=== PATIENT | female | born 1970 | race Caucasian/White ===

== ENCOUNTER 2016-07-13 21:13 | Emergency (ER) | payer OTHER ==
[~2016-07-13] VITALS: Ht 154.9 cm; Wt 72.0 kg
[~2016-07-13 21:13] MED LIST: AMANTADINE; AMANTADINE100 M1 PO; BACLOFEN10 MG PO; BACLOFEN20 MG PO; CLARITIN-D 21 TABLET PO; CLARITIN10 M1 PO; CLARITIN10 M3 PO; CLARITIN5 MG/5 ML PO; COMBIVENT RESPIM4 GM IH; CYMBALTA20 MG PO; CYMBALTA60 MG PO; DILAUDID2 MG PO; DILAUDID4 MG PO; FENTANYL1 EAC5 TD; HYDROMORPHONE HC8 MG PO; KLONOPIN0.5 M1 PO; LEVO-T88 MCG PO; LEVOTHROID,S0.088 MG PO; MARTINIC1 EACH SC; MS CONTIN,ORAMO30 MG PO; MS CONTIN30 MG PO; Martinic SC; ONDANSETRON HCL4 MG PO; PRAVACHOL20 MG PO; PREVACID15 MG PO; PRILOSEC2.5 MG PO; PRILOSEC40 MG PO; PROMETHAZI25 MG/1 M2 SC; PROMETHAZINE HCL SC; PROVENTIL,200 INHALA IH; SEROQUEL300 MG PO; STOOL SOFTENER1 EAC2 PO; THERAGRAN1 TABLET PO; VALACYCLOVIR500 MG PO; VITAMIN B-1250 MC3 PO; VITAMIN D400 INTUNI PO; VITAMIN D50000 UNI1 PO; ZOFRAN ODT4 MG PO; ZOFRAN4 MG PO; Zofran PO
[2016-07-14 03:21] VITALS: BP 128/71
== END 2016-07-14 05:13 | disposition home or self-care (01) ==
LOC: EME 21:13
DX: G89.29 Other chronic pain (principal); G12.21 Amyotrophic lateral sclerosis
CPT/HCPCS: 99281; 99284; J1170; J2405

== ENCOUNTER 2016-10-02 02:44 | Inpatient (IN) | payer OTHER ==
[~2016-10-02] VITALS: Ht 154.9 cm; Wt 78.9 kg
[2016-10-02 03:10] LABS: HEMATOCRIT 34.8 % (36.0-46.0); MCH 29.8 PG (29.0-34.0); MCHC 32.2 G/DL (30.0-36.0); MCV 92.6 FL (83-99); MEAN PLAT.VOLUME 10.1 uM^3 (9.5-12.4); PLATELET COUNT 196 K/uL (156-360); RBC DIS.WIDTH-CV 14.4 % (11.8-14.6); RBC DIS.WIDTH-SD 48.6 % (39-53); RED BLOOD COUNT 3.76 M/uL (3.80-5.20); WHITE BLOOD COUNT 8.2 K/uL (4.1-10.2)
[2016-10-02 03:21] LABS: CHLORIDE 103 mEq/L (99-109); POTASSIUM 4.2 mEq/L (3.7-5.4); SODIUM 140 mEq/L (136-147)
[2016-10-02 03:23] LABS: GLUCOSE 120 mg/dL (70-99)
[2016-10-02 03:24] LABS: ANION GAP 11 MEQ/L (2-14)
[2016-10-02 03:27] LABS: UREA NITROGEN (BUN) 14 mg/dL (9-23)
[2016-10-02 03:34] LABS: GFR ESTIMATE (CALCULATED) > 59 mL/min/
[2016-10-02 05:08] LABS: INFLUENZA A VIRAL ANTIGEN NEGATIVE; INFLUENZA B VIRAL ANTIGEN NEGATIVE
[2016-10-02 06:28] LABS: ADD MIUA? YES; BILIRUBIN NEGATIVE; BLOOD NEGATIVE; COLOR YELLOW ((YELLOW)); GLUCOSE (STRIP) NEGATIVE; KETONES NEGATIVE; LEUKOCYTES NEGATIVE; NITRITE NEGATIVE; PROTEIN (STRIP) NEGATIVE; SPECIFIC GRAVITY 1.026 (1.000-1.030); UROBILINOGEN 0.2 MG/DL (0.2-1.0)
[2016-10-02 06:34] LABS: BACTERIA NONE SEEN /HPF; EPITHELIAL CELLS RARE /HPF; MUCUS TRACE /LPF; RED BLOOD CELLS 0-5 /HPF (0-5); UCUL ADDED? NO; WHITE BLOOD CELLS 0-5 /HPF (0-5)
[2016-10-02 07:02] LABS: AMPHETAMINES QUANT VALUE 0 NG/ML; BARBITUATES QUANT VALUE 0 NG/ML; BENZODIAZEPINES QUANT VALUE 0 NG/ML; BENZODIAZEPINES, URINE SCREEN Negative (200 ng/mL); MARIJUANA QUANT VALUE 0 NG/ML; PHENCYCLIDINE QUANT VALUE 0 NG/ML
[2016-10-02] MEDS ORDERED: CYANOCOBAL1000 MCG/2 IM (10:27)
[2016-10-02] MEDS ORDERED: PROAIR HFA8.5 GM IH (10:27)
[2016-10-02] MEDS ORDERED: SYMBICORT60 INHALAT IH (10:27)
[2016-10-02 15:58] VITALS: BP 96/55
[2016-10-03 00:25] VITALS: BP 116/66
[2016-10-03 04:16] VITALS: BP 108/30
[2016-10-03 07:48] VITALS: BP 117/66
[2016-10-03 14:45] VITALS: BP 91/50
[2016-10-04] VITALS: BP 111/53
[2016-10-04 07:23] LABS: HEMATOCRIT 30.8 % (36.0-46.0); MCH 29.6 PG (29.0-34.0); MCHC 32.1 G/DL (30.0-36.0); MCV 92.2 FL (83-99); MEAN PLAT.VOLUME 10.5 uM^3 (9.5-12.4); PLATELET COUNT 205 K/uL (156-360); RED BLOOD COUNT 3.34 M/uL (3.80-5.20); WHITE BLOOD COUNT 8.9 K/uL (4.1-10.2)
[2016-10-04 07:42] LABS: ANION GAP 8 MEQ/L (2-14); CHLORIDE 104 MEQ/L (99-109); GFR ESTIMATE (CALCULATED) > 59 mL/min/; GLUCOSE 101 mg/dL (70-99); POTASSIUM 4.2 MEQ/L (3.7-5.4); SAMPLE HEMOLYSIS CHECK 0; SAMPLE ICTERIC CHECK 0; SAMPLE LIPEMIA CHECK 0; SODIUM 138 MEQ/L (136-147); UREA NITROGEN (BUN) 21 mg/dL (9-23)
[2016-10-04 08:00] VITALS: BP 107/62
[2016-10-04 17:39] LABS: C DIFF TOXIN NEGATIVE (NEGATIVE)
[2016-10-04 17:47] LABS: PROBE CHECK PASS; SPECIMEN PROCESSING CONTROL PASS
[2016-10-04 22:39] LABS: METH RESISTANT S AUREUS PCR NEGATIVE (NEGATIVE); PROBE CHECK PASS; SPECIMEN PROCESSING CONTROL PASS
[2016-10-05] VITALS: BP 108/70
[2016-10-05 09:11] VITALS: BP 101/60
[2016-10-05 17:34] VITALS: BP 124/80
[2016-10-06] VITALS (7 sets, daily range): BP systolic 97–123; BP diastolic 54–75
[2016-10-07 07:51] VITALS: BP 115/66
[2016-10-07] MEDS ORDERED: SPIRIVA RESPIMAT4 GM IH (11:25)
[2016-10-07] MEDS ORDERED: DOXYCYCLINE HY100 M3 PO (11:25)
[2016-10-07] MEDS ORDERED: FAMOTIDINE20 MG PO (11:27)
[2016-10-07] MEDS ORDERED: SENNA PLUS TAB1 EACH PO (11:27)
[2016-10-07] MEDS ORDERED: PREDNISONE10 MG PO (11:28)
[2016-10-07] MEDS ORDERED: ZOFRAN4 MG PO (13:10)
== END 2016-10-07 13:42 | disposition home health service (06) | DRG 191 ==
LOC: EME 02:44 → 5SOUTH 04:10 → EDOF 04:10 → 5SOUTH 15:26
PROVIDERS: Emergency Medicine; Hospitalist; Internal Medicine; Physician Assistant Medical
DX: J44.0 Chronic obstructive pulmonary disease with (acute) lower respiratory infection (principal); J44.1 Chronic obstructive pulmonary disease with (acute) exacerbation; G12.21 Amyotrophic lateral sclerosis; D68.51 Activated protein C resistance; M79.7 Fibromyalgia; G89.4 Chronic pain syndrome; G40.909 Epilepsy, unspecified, not intractable, without status epilepticus; J45.909 Unspecified asthma, uncomplicated; E03.9 Hypothyroidism, unspecified; F31.9 Bipolar disorder, unspecified; K21.9 Gastro-esophageal reflux disease without esophagitis; F17.200 Nicotine dependence, unspecified, uncomplicated; Z86.718 Personal history of other venous thrombosis and embolism; F11.20 Opioid dependence, uncomplicated; I69.398 Other sequelae of cerebral infarction; H54.40 Blindness, one eye, unspecified eye; E66.9 Obesity, unspecified; Z68.32 Body mass index [BMI] 32.0-32.9, adult; J45.901 Unspecified asthma with (acute) exacerbation; J20.9 Acute bronchitis, unspecified; R91.1 Solitary pulmonary nodule; Z91.5 Personal history of self-harm; I95.9 Hypotension, unspecified
CPT/HCPCS: 71010; 74000; 78582; 80048; 80306 90; 81003; 85027; 87070; 87205; 87493; 87502; 87641; 93005; 93970; 94640; 94640 76; 94644; 94760; 94799; 99202; 99281; 99285; A9540; A9567; J1650; J2060; J2405; J2930; J7030; J7040; J7512

== ENCOUNTER 2017-02-05 20:21 | Emergency (ER) | payer OTHER ==
[~2017-02-05] VITALS: Ht 154.9 cm; Wt 72.8 kg
[~2017-02-05 20:21] MED LIST changes: +CYANOCOBAL1000 MCG/2 IM; +DOXYCYCLINE HY100 M3 PO; +FAMOTIDINE20 MG PO; +PREDNISONE10 MG PO; +PROAIR HFA8.5 GM IH; +SENNA PLUS TAB1 EACH PO; +SPIRIVA RESPIMAT4 GM IH; +SYMBICORT60 INHALAT IH
[2017-02-05 21:06] LABS: HEMATOCRIT 38.3 % (36.0-46.0); MCH 30.8 PG (29.0-34.0); MCHC 33.9 G/DL (30.0-36.0); MCV 90.8 FL (83-99); MEAN PLAT.VOLUME 9.4 uM^3 (9.5-12.4); PLATELET COUNT 360 K/uL (156-360); RBC DIS.WIDTH-CV 13.6 % (11.8-14.6); RBC DIS.WIDTH-SD 45.6 % (39-53); RED BLOOD COUNT 4.22 M/uL (3.80-5.20); WHITE BLOOD COUNT 10.3 K/uL (4.1-10.2)
[2017-02-05 21:30] LABS: ANION GAP 11 MEQ/L (2-14); CHLORIDE 107 MEQ/L (99-109); POTASSIUM 3.8 MEQ/L (3.7-5.4); SAMPLE HEMOLYSIS CHECK 0; SAMPLE ICTERIC CHECK 0; SAMPLE LIPEMIA CHECK 0; SODIUM 138 MEQ/L (136-147)
[2017-02-05 21:35] LABS: GFR ESTIMATE (CALCULATED) > 59 mL/min/; GLUCOSE 91 mg/dL (70-99); UREA NITROGEN (BUN) 14 mg/dL (9-23)
[2017-02-05 21:46] LABS: SERUM ETHYL ALCOHOL < 10 mg/dL
[2017-02-05 23:33] VITALS: BP 112/77
[2017-02-06] MEDS ORDERED: PROMETHAZINE HC25 M1 PO (05:18)
[2017-02-06] MEDS ORDERED: CLONIDINE HCL0.1 MG PO (05:18)
[2017-02-06] MEDS ORDERED: REQUIP2 MG PO (05:18)
== END 2017-02-05 23:33 | disposition home or self-care (01) ==
LOC: RME 20:21 → EME 20:21 → RME 23:33
PROVIDERS: Physician Assistant Medical
DX: M25.50 Pain in unspecified joint (principal); F11.23 Opioid dependence with withdrawal; G12.21 Amyotrophic lateral sclerosis; J44.9 Chronic obstructive pulmonary disease, unspecified; E78.5 Hyperlipidemia, unspecified; M79.7 Fibromyalgia; Z86.73 Personal history of transient ischemic attack (TIA), and cerebral infarction without residual deficits; Z86.718 Personal history of other venous thrombosis and embolism; F32.9 Major depressive disorder, single episode, unspecified; F41.9 Anxiety disorder, unspecified; K21.9 Gastro-esophageal reflux disease without esophagitis; Z87.442 Personal history of urinary calculi; Z91.040 Latex allergy status; Z88.6 Allergy status to analgesic agent; Z88.0 Allergy status to penicillin; F17.200 Nicotine dependence, unspecified, uncomplicated
CPT/HCPCS: 80048; 85027; 99281; 99285; G0480; J2270

== ENCOUNTER 2017-02-06 03:46 | Emergency (ER) | payer OTHER ==
[~2017-02-06] VITALS: Ht 157.5 cm; Wt 72.8 kg
[2017-02-06] MEDS ORDERED: CLONIDINE HCL0.1 MG PO (05:18)
[2017-02-06] MEDS ORDERED: REQUIP2 MG PO (05:18)
[2017-02-06] MEDS ORDERED: PROMETHAZINE HC25 M1 PO (05:18)
[2017-02-06 05:30] VITALS: BP 100/67
== END 2017-02-06 05:48 | disposition home or self-care (01) ==
LOC: EME 03:46
DX: F11.23 Opioid dependence with withdrawal (principal); J44.9 Chronic obstructive pulmonary disease, unspecified; F32.9 Major depressive disorder, single episode, unspecified; K21.9 Gastro-esophageal reflux disease without esophagitis; E78.5 Hyperlipidemia, unspecified; M79.7 Fibromyalgia; G89.29 Other chronic pain; Z87.442 Personal history of urinary calculi; Z86.73 Personal history of transient ischemic attack (TIA), and cerebral infarction without residual deficits; Z86.718 Personal history of other venous thrombosis and embolism; Z91.040 Latex allergy status; Z88.6 Allergy status to analgesic agent; Z88.0 Allergy status to penicillin; F17.200 Nicotine dependence, unspecified, uncomplicated; F41.9 Anxiety disorder, unspecified
CPT/HCPCS: 99281; 99284

== ENCOUNTER 2017-06-29 13:30 | Observation (INO) | payer OTHER ==
[~2017-06-29] VITALS: Ht 152.4 cm; Wt 78.3 kg
[~2017-06-29 13:30] MED LIST changes: +CLONIDINE HCL0.1 MG PO; +PROMETHAZINE HC25 M1 PO; +REQUIP2 MG PO
[2017-06-29 16:22] LABS: HEMATOCRIT 41.3 % (36.0-46.0); HEMOGLOBIN 13.8 G/DL (11.9-15.5); MCH 31.6 PG (29.0-34.0); MCHC 33.4 G/DL (30.0-36.0); MCV 94.5 FL (83-99); RBC DIS.WIDTH-CV 14.2 % (11.8-14.6); RBC DIS.WIDTH-SD 49.9 % (39-53); RED BLOOD COUNT 4.37 M/uL (3.80-5.20); WHITE BLOOD COUNT 7.7 K/uL (4.1-10.2)
[2017-06-29 16:35] LABS: CHLORIDE 104 mEq/L (99-109)
[2017-06-29 16:36] LABS: SODIUM 140 mEq/L (136-147)
[2017-06-29 16:37] LABS: GLUCOSE 113 mg/dL (70-99)
[2017-06-29 16:41] LABS: CREATININE 1.1 mg/dL (0.6-1.3); GFR ESTIMATE (CALCULATED) 56 mL/min/
[2017-06-29 16:42] LABS: UREA NITROGEN (BUN) 14 mg/dL (9-23)
[2017-06-29] MEDS ORDERED: DILAUDID8 MG PO (17:35)
[2017-06-29] MEDS ORDERED: PEPCID20 MG PO (17:36)
[2017-06-29] MEDS ORDERED: SUPER MULTIVIT1 EACH PO (17:37)
[2017-06-29] MEDS ORDERED: NARCAN4 MG NS (17:37)
[2017-06-29] MEDS ORDERED: SENNA8.6 MG PO (17:38)
[2017-06-29 17:47] LABS: PLATELET CLUMPS PRESENT - PLATELET COUNTS APPEARS DECREASED; PLATELET COUNT UNABLE TO REPORT K/uL (156-360)
[2017-06-29 19:36] LABS: APPEARANCE SL.HAZY ((CLEAR)); BILIRUBIN NEGATIVE; BLOOD NEGATIVE; COLOR YELLOW ((YELLOW)); GLUCOSE (STRIP) NEGATIVE; KETONES NEGATIVE; LEUKOCYTES NEGATIVE; NITRITE NEGATIVE; PROTEIN (STRIP) NEGATIVE; SPECIFIC GRAVITY 1.012 (1.000-1.030); UROBILINOGEN 0.2 MG/DL (0.2-1.0)
[2017-06-29 19:43] LABS: BACTERIA 3+ /HPF; EPITHELIAL CELLS 1+ /HPF; HYALINE CASTS 0-5 /LPF; MUCUS TRACE /LPF; RED BLOOD CELLS 0-5 /HPF (0-5); UCUL ADDED? YES; WHITE BLOOD CELLS 0-5 /HPF (0-5)
[2017-06-29 21:31] VITALS: BP 117/70
[2017-06-30 00:50] VITALS: BP 111/64
[2017-06-30 09:43] VITALS: BP 102/66
== END 2017-06-30 12:22 | disposition home or self-care (01) ==
LOC: EME 13:30 → EDOF 18:27 → 5WEST 18:27 → EDOF 18:27 → ENRESERV 18:29 → 5WEST 21:28
PROVIDERS: Emergency Medicine
DX: G12.23 Primary lateral sclerosis (principal); R53.1 Weakness; D68.51 Activated protein C resistance; G89.29 Other chronic pain; Z86.711 Personal history of pulmonary embolism; Z86.718 Personal history of other venous thrombosis and embolism; F11.20 Opioid dependence, uncomplicated; J44.9 Chronic obstructive pulmonary disease, unspecified; F32.9 Major depressive disorder, single episode, unspecified; F41.9 Anxiety disorder, unspecified; Z98.890 Other specified postprocedural states; F17.210 Nicotine dependence, cigarettes, uncomplicated; E03.9 Hypothyroidism, unspecified; R03.0 Elevated blood-pressure reading, without diagnosis of hypertension; K21.9 Gastro-esophageal reflux disease without esophagitis; Z83.3 Family history of diabetes mellitus; Z80.9 Family history of malignant neoplasm, unspecified; E66.9 Obesity, unspecified; Z88.0 Allergy status to penicillin; Z88.1 Allergy status to other antibiotic agents; Z88.2 Allergy status to sulfonamides; Z88.5 Allergy status to narcotic agent; Z88.8 Allergy status to other drugs, medicaments and biological substances; Z91.09 Other allergy status, other than to drugs and biological substances; Z91.040 Latex allergy status
CPT/HCPCS: 70450; 71046; 80048; 81003; 85027; 87086; 87641; 93005; 99202; 99281; 99285; G0378; J1170; J1650; J7050